=== PATIENT | male | born 1970 | race Caucasian/White ===

== ENCOUNTER 2017-02-18 09:05 | Day surgery (SDC) | payer OTHER ==
--- NOTE | ~2017-02-18 | OP ---
Record Of Operation [facility] [address] [place]. [address] NAME: PADMINI SAMANO : 68 STATUS : [place] [facility] PAT#: [id number] AGE: 46 ADM/REG DATE : 02/18/17 MR#: [id number] REPORT SERV DATE: 02/18/17 DICTATED BY: WARD KRUSE DATE: 02/18/17 REPORT STATUS : Draft TRANSCRIBED BY: MODL DATE: 02/18/17 DATE OF PROCEDURE: 02/18/2017 PREOPERATIVE DIAGNOSIS: Right small finger trigger finger. POSTOPERATIVE DIAGNOSIS: Right small finger trigger finger. PROCEDURE: Right small finger trigger finger release. SURGEON: Ward Kruse M.D. [employer] SAWYER: Ning Love. ANESTHESIA: IV sedation, with local anesthetic, with 1% lidocaine. ESTIMATED BLOOD LOSS: 5 mL. FLUID: 900 mL of crystalloid. TOURNIQUET TIME: Zero. DRAINS: None. COMPLICATIONS: None. INDICATION: 46-year-old gentleman, who presented to the office with pain and catching of the small finger on flexion and extension, with incomplete extension release. The patient was diagnosed as having trigger finger. He was apprised of diagnosis and opted for operative treatment having understood the possible risks and complications. DESCRIPTION OF PROCEDURE: He was identified in the preop holding area. operative site was marked with yes. The patient was taken to the operating suite and placed in supine position on the operating table. The right upper extremity was then prepped and draped to expose the arm circumferentially. A time-out was called to identified the correct operative extremity, identified verification of antibiotic Ancef administration. The patient has had some IV sedation given and local anesthetic was administered to the small finger volar aspect of the hand overlying the flexor tendon with 1% lidocaine. A transverse incision was then made. The A1 arlene was identified and sharply incised using scalpel and scissors. The tendon was then withdrawn into the incision noted to be free. The patient was then awakened and asked to flex and extend his hand multiple times with no further catching of the finger which was demonstrated in the preop area. The patient then had suture repair done of the integument with 3-0 nylon interrupted suture x3. Xeroform gauze was placed. Sterile dry gauze, Jesus roll, and Coban dressing was applied. The patient then was transferred to the hospital gurney, taken to postanesthesia care unit in satisfactory condition having tolerated the procedure well. Sponge and needle counts were correct at the conclusion of procedure. Record Of Operation [facility] [address] [id number] NAME: PADMINI SAMANO : 68 STATUS : [place] [facility] PAT#: [id number] AGE: 46 ADM/REG DATE : 02/18/17 MR#: [id number] REPORT SERV DATE: 02/18/17 DICTATED BY: WARD KRUSE DATE: 02/18/17 REPORT STATUS : Draft TRANSCRIBED BY: NABIL DATE: 02/18/17 EC/NABIL Ward Kruse M.D. / [id number] CC: Ward Kruse M.D.
[~2017-02-18 09:05] MED LIST: ALLERGY MED.; LANTUS SC; NOVOLOG SC; PRILOSEC40 MG PO; PRIN20 PO
[2017-02-18 09:25] LABS: HEMATOCRIT 45.6 % (40.0-51.0); HEMOGLOBIN 15.8 g/dL (13.6-17.8)
[2017-02-18 09:38] LABS: BUN (BLOOD UREA NITROGEN) 16 MG/DL (6-23); CALCIUM, SERUM 9.1 MG/DL (8.5-10.4); CHLORIDE, SERUM 105 MMOL/L (96-112); CO2 (CARBON DIOXIDE) 36 MMOL/L (24-34); CREATININE 1.16 MG/DL (0.70-1.30); GFR AFRICAN AMERICAN 86 ML/MIN (>=60); GFR NON AFRICAN AMERICAN 75 ML/MIN (>=60); GLUCOSE, SERUM 76 MG/DL (60-99); POTASSIUM, SERUM 4.2 MMOL/L (3.5-5.3); SODIUM, SERUM 143 MMOL/L (135-148)
== END 2017-02-18 23:59 | disposition home health service (06) ==
LOC: MSC 09:05
PROVIDERS: Orthopaedic Surgery
PROC: 0LN70ZZ Release Right Hand Tendon, Open Approach (ICD-10-PCS; principal; 2017-02-18 12:45)
DX: M65.351 Trigger finger, right little finger (principal); E11.9 Type 2 diabetes mellitus without complications; I10 Essential (primary) hypertension; F17.200 Nicotine dependence, unspecified, uncomplicated; K21.9 Gastro-esophageal reflux disease without esophagitis; Z98.890 Other specified postprocedural states
CPT/HCPCS: 80048; 82962; 85014; 85018; 93005; A9270-GY; J0690; J2250; J3010